=== PATIENT | female | born 1985 | race Caucasian/White ===

== ENCOUNTER 2019-07-21 07:30 | Inpatient (IN) | payer OTHER ==
[~2019-07-21] VITALS: Ht 170.2 cm; Wt 62.5 kg
[2019-07-21] VITALS (30 sets, daily range): BP systolic 96–116; BP diastolic 55–81; PULSE 69–118; RESP 10–24; Ht 170.2 cm; Wt 62.5 kg
[~2019-07-21 07:30] MED LIST: CYCL10TA7 PO; DOCU-144 PO; FLUT9.9S NASAL; IBUP200C11 PO; LORA-186 PO; TRAM50TA2 PO
[2019-07-21] MEDS ORDERED: GELATIN SIZE 100 SPONGE ONE (09:18)
[2019-07-21] MEDS ORDERED: POLYMYXIN/BACITRACIN 1L IRRIG ONE (09:19)
[2019-07-21] MEDS ORDERED: BUPIVACAINE 0.5%/EPI (SDV) 10 ML INJ ONE (09:19)
[2019-07-21] MEDS ORDERED: THROMBIN 20,000 UNIT VIAL ONE (09:19)
[2019-07-21] MEDS ORDERED: LIDOCAINE 0.5% (SDV) 50 ML INJ ONE (09:19)
[2019-07-21] MEDS ORDERED: DESFLURANE 15 MIN ONE (10:00)
[2019-07-21] MEDS ORDERED: EPHEDrine 25 MG/5 ML SYG ONE (10:00)
[2019-07-21] MEDS ORDERED: METOCLOPRAMIDE 10 MG INJ ONE (10:19)
[2019-07-21] MEDS ORDERED: DEXAMETHASONE 4 MG/ML 5 ML INJ ONE (10:19)
[2019-07-21] MEDS ORDERED: ROCURONIUM 50 MG INJ ONE (10:19)
[2019-07-21] MEDS ORDERED: PROPOFOL 20 ML ONE ×2 (10:19→14:26)
[2019-07-21] MEDS ORDERED: MIDAZOLAM 1 MG/ML 2 ML INJ ONE (10:20)
[2019-07-21] MEDS ORDERED: FENTAnyl 50 MCG/ML VIAL IV PRN ×2 (10:30)
[2019-07-21] MEDS ORDERED: POTASSIUM CHLORIDE 20 MEQ in LACTATED RINGER'S 1,000 ML IV SCH (10:30)
[2019-07-21] MEDS ORDERED: CEFAZOLIN 2 GM/50 ML (PMX) 50 ML IVPB SCH (10:30)
[2019-07-21] MEDS ORDERED: DIPHENHYDRAMINE 50 MG INJ IV PRN (10:30)
[2019-07-21] MEDS ORDERED: HYDROmorphONE 1 MG/5 ML IV SYRINGE IV PRN ×3 (10:30)
[2019-07-21] MEDS ORDERED: MEPERIDINE 25 MG INJ IV PRN (10:30)
[2019-07-21] MEDS ORDERED: CEFAZOLIN 1 GM INJ ONE (10:33)
[2019-07-21] MEDS ORDERED: HYDROmorphONE 2 MG/ML SYG ONE (10:36)
[2019-07-21] MEDS ORDERED: HEMOSTATIC MATRIX SYG ZFS ONE (11:29)
[2019-07-21] MEDS: D5W-0.45 NACL + KCL 20 MEQ 1,000 ML IV SCH ×2 (15:11→20:28)
[2019-07-21] MEDS: FENTAnyl 50 MCG/ML VIAL IV PRN ×2 (15:18→15:27)
[2019-07-21] MEDS: ONDANSETRON 4 MG INJ IV PRN ×2 (15:18→15:48)
[2019-07-21] MEDS ORDERED: BISACODYL 10 MG SUPP PR PRN (15:30)
[2019-07-21] MEDS ORDERED: NALOXONE (0.4 MG/ML) INJ IV PRN (15:30)
[2019-07-21] MEDS ORDERED: ACETAMINOPHEN 325 MG TAB PO PRN (15:30)
[2019-07-21] MEDS ORDERED: ONDANSETRON 4 MG INJ IV PRN (15:30)
[2019-07-21] MEDS: CEFAZOLIN 1 GM/50 ML (PMX) 50 ML IVPB SCH ×2 (16:23→23:09)
[2019-07-21] MEDS ORDERED: SCOPOLAMINE 1.5 MG PATCH TRANSDERM ONE (17:00)
[2019-07-21] MEDS ORDERED: ACETAMINOPHEN 1000MG/100ML IV 100 ML ONE (17:21)
[2019-07-21] MEDS ORDERED: LORAZEPAM 2 MG INJ IV PRN (17:30)
[2019-07-21] MEDS ORDERED: ACETAMINOPHEN 1000MG/100ML IV 100 ML IVPB ONE (17:30)
[2019-07-21] MEDS ORDERED: PROCHLORPERAZINE 10 MG INJ ONE (17:51)
[2019-07-21] MEDS ORDERED: NALBUPHINE HCL (10 MG/1 ML) INJ IV ONE (18:00)
[2019-07-21] MEDS ORDERED: PROCHLORPERAZINE 10 MG INJ IM ONE (18:00)
[2019-07-21] MEDS: HYDROmorphONE 0.5 MG/0.5 ML SYG IV PRN (20:25)
[2019-07-21] MEDS: DOCUSATE SODIUM 100 MG CAP PO SCH (21:00)
[2019-07-21] MEDS: FAMOTIDINE 20 MG INJ IV SCH (21:42)
[2019-07-21] MEDS: CYCLOBENZAPRINE 10 MG TAB PO SCH (21:43)
[2019-07-21] MEDS: traMADol 50 MG TAB PO SCH ×2 (21:45→23:30)
[2019-07-22] MEDS: HYDROmorphONE 0.5 MG/0.5 ML SYG IV PRN ×6 (00:09→20:05)
[2019-07-22] MEDS: D5W-0.45 NACL + KCL 20 MEQ 1,000 ML IV SCH ×4 (01:11→21:11)
[2019-07-22] MEDS: traMADol 50 MG TAB PO SCH ×6 (02:57→23:10)
[2019-07-22] MEDS ORDERED: HYDROCODONE/APAP (5/325) TAB PO PRN (05:00)
[2019-07-22 07:41] VITALS: BP 101/63; RESP 82
[2019-07-22] MEDS: CEFAZOLIN 1 GM/50 ML (PMX) 50 ML IVPB SCH (08:13)
[2019-07-22] MEDS: DOCUSATE SODIUM 100 MG CAP PO SCH ×2 (08:14→20:44)
[2019-07-22] MEDS: CYCLOBENZAPRINE 10 MG TAB PO SCH ×3 (08:14→20:44)
[2019-07-22] MEDS: FLUTICASONE 0.05% 16 GM NAS SPRAY NASAL SCH (08:14)
[2019-07-22] MEDS: FAMOTIDINE 20 MG INJ IV SCH ×2 (08:14→20:44)
[2019-07-22] MEDS: LORATADINE 10 MG TAB PO SCH (08:18)
[2019-07-22 15:53] VITALS: BP 97/56; PULSE 70; RESP 18
[2019-07-22 19:40] VITALS: BP 114/58; PULSE 106; RESP 20
[2019-07-23] MEDS: HYDROmorphONE 0.5 MG/0.5 ML SYG IV PRN ×4 (00:38→17:42)
[2019-07-23 02:05] VITALS: BP 103/57; PULSE 102; RESP 20
[2019-07-23] MEDS: traMADol 50 MG TAB PO SCH ×5 (04:44→19:30)
[2019-07-23] MEDS: D5W-0.45 NACL + KCL 20 MEQ 1,000 ML IV SCH ×2 (07:11→17:11)
[2019-07-23 08:02] VITALS: BP 94/52; PULSE 67; RESP 18
[2019-07-23] MEDS: LORATADINE 10 MG TAB PO SCH (08:56)
[2019-07-23] MEDS: DOCUSATE SODIUM 100 MG CAP PO SCH (08:56)
[2019-07-23] MEDS: CYCLOBENZAPRINE 10 MG TAB PO SCH ×2 (08:56→12:05)
[2019-07-23] MEDS: FLUTICASONE 0.05% 16 GM NAS SPRAY NASAL SCH (08:56)
[2019-07-23] MEDS: FAMOTIDINE 20 MG INJ IV SCH (08:56)
[2019-07-23 15:06] VITALS: BP 109/61; PULSE 64; RESP 18
== END 2019-07-23 19:10 | disposition home or self-care (01) | DRG 455 ==
LOC: EDSTATUS 07:30 → REC 08:55 → MS1 19:36
PROVIDERS: ADMIT Neurological Surgery; ATTEND Neurological Surgery
PROC: 0SG30K1 Fusion of Lumbosacral Joint with Nonautologous Tissue Substitute, Posterior Approach, Posterior Column, Open Approach (ICD-10-PCS; 2019-07-21)
PROC: 0SB40ZZ Excision of Lumbosacral Disc, Open Approach (ICD-10-PCS; 2019-07-21)
PROC: 4A11X4G Monitoring of Peripheral Nervous Electrical Activity, Intraoperative, External Approach (ICD-10-PCS; 2019-07-21)
PROC: 0SG30AJ Fusion of Lumbosacral Joint with Interbody Fusion Device, Posterior Approach, Anterior Column, Open Approach (ICD-10-PCS; principal; 2019-07-21 07:30)
DX: M51.27 Other intervertebral disc displacement, lumbosacral region (principal); M51.37 Other intervertebral disc degeneration, lumbosacral region
CPT/HCPCS: 72110; 80048; 83735; 84100; 85025; 86850; 86900; 86901; 87086; 97116; 97162; 97530; C1713; J0131; J0690; J0780; J1100; J1170; J1200; J2175; J2250; J2300; J2405; J2765; J3010; J3480; J7120